=== PATIENT | female | born 1930 | race African-American/Black ===

== ENCOUNTER 2018-10-07 22:14 | Inpatient (IN) | payer MEDICAID, MEDICARE ==
[~2018-10-07] VITALS: Ht 157.5 cm; Wt 61.7 kg
[2018-10-07 22:19] VITALS: BP_SYST 108
[2018-10-07] MEDS ORDERED: CILO100T PO (22:37)
[2018-10-07] MEDS ORDERED: SENN-234 PO (22:37)
[2018-10-07] MEDS ORDERED: FAMO-132 PO (22:37)
[2018-10-07] MEDS ORDERED: ANT30 PO (22:37)
[2018-10-07] MEDS ORDERED: MOM PO (22:37)
[2018-10-07] MEDS ORDERED: MULT-1089 PO (22:37)
[2018-10-07] MEDS ORDERED: TYC3 PO (22:37)
[2018-10-07] MEDS ORDERED: HYDR-4272 PO ×2 (22:37)
[2018-10-07] MEDS ORDERED: ASCO500T20 PO (22:37)
[2018-10-07] MEDS ORDERED: ACET325T53 PO (22:37)
[2018-10-07] MEDS ORDERED: DOCU-144 PO (22:37)
[2018-10-07] MEDS ORDERED: ASA81 PO (22:37)
[2018-10-07] MEDS ORDERED: NACL 0.9% 1,000 ML IV ONE (22:47)
[2018-10-08 00:31] LABS: BASOPHILS # (AUTO) 0.1 K/uL (0.0-0.2); BASOPHILS % (AUTO) 0.5 % (0.0-2.0); EOSINOPHILS % (AUTO) 0.1 % (0.0-4.0); HEMATOCRIT 36.6 % (36-48); HEMOGLOBIN 12.3 g/dL (12.0-16.0); LYMPHOCYTES # (AUTO) 1.1 K/uL (1.0-5.5); MEAN CORPUSCULAR HEMOGLOBIN 32 pg (27-31); MEAN CORPUSCULAR HGB CONC 34 % (32-36); MEAN CORPUSCULAR VOLUME 94 fL (79.0-98.0); MONOCYTES # (AUTO) 0.6 K/uL (0.0-1.0); MONOCYTES % (AUTO) 5.9 % (1.7-9.3); NEUTROPHILS % (AUTO) 82.5 % (40.0-70.0); PLATELET COUNT (AUTO) 350 K/uL (130-430); RED CELL DISTRIBUTION WIDTH 15.1 % (9.0-15.0); WHITE BLOOD COUNT (AUTO) 9.8 K/uL (4.8-10.8)
[2018-10-08 00:36] LABS: ANION GAP 10 (5-15); CALCIUM 9.7 mg/dL (8.4-11.0); CHLORIDE 102 mmol/L (98-107); CREATININE 0.97 mg/dL (0.55-1.30); GLUCOSE 173 mg/dL (70-99); POTASSIUM 4.3 mmol/L (3.5-5.1); SODIUM SERUM 137 mmol/L (136-145); UREA NITROGEN, BLOOD 17 mg/dL (8-21)
[2018-10-08 00:39] LABS: PROTHROMBIN TIME 10.3 SECS (9.5-12.5)
[2018-10-08 00:42] LABS: ALANINE AMINOTRANSFERASE 33 U/L (12-78); ALBUMIN 2.7 g/dL (3.4-4.8); AMYLASE 135 U/L (0-100); ASPARTATE AMINOTRANSFERASE 29 U/L (10-37); LIPASE 87 U/L (73-393); TOTAL BILIRUBIN 0.5 mg/dL (0.0-1.0)
[2018-10-08] MEDS ORDERED: PIPERACILLIN/TAZO 3.375 GM in NS 50 ML IV ONE (01:00)
[2018-10-08] MEDS ORDERED: NACL 0.9% 1,000 ML IV ONE (01:00)
[2018-10-08] MEDS ORDERED: PIPERACILLIN/TAZOBACTAM 3.375 GM/VIAL (ZOSYN) IV ONE (01:06)
[2018-10-08 01:08] LABS: BILIRUBIN,URINE NEGATIVE (NEGATIVE); BLOOD, URINE 3+ (NEGATIVE); CLARITY/URINE HAZY (CLEAR); COLOR,URINE YELLOW (YELLOW); GLUCOSE,URINE NEGATIVE (NEGATIVE); KETONES,URINE NEGATIVE (NEGATIVE); LEUKOCYTE ESTERASE ,URINE 1+ (NEGATIVE); NITRITE, URINE NEGATIVE (NEGATIVE); PROTEIN URINE 3+ (NEGATIVE); UROBILINOGEN,URINE 0.2 (0.2-1.0)
[2018-10-08 01:19] LABS: BACTERIA,URINE MANY /HPF (None Seen); RBC,URINE 20-50 /HPF (0-3)
[2018-10-08] MEDS ORDERED: KCL 20 mEq in D5/0.45NS 1000mL 1,000 ML IV SCH (04:15)
[2018-10-08] MEDS ORDERED: ACETAMINOPHEN 325 MG TABLET PO PRN ×2 (04:15→04:30)
[2018-10-08] MEDS ORDERED: ONDANSETRON HCL 4 MG/2 ML VIAL IVP PRN (04:15)
[2018-10-08] MEDS ORDERED: HYDROcodone/ACETAMIN 5-325 MG TAB (NORCO/ VICODIN) PO PRN (04:30)
[2018-10-08] MEDS ORDERED: ACETAMINOPHEN/CODEINE 300 MG-30 MG TABLET PO PRN (04:30)
[2018-10-08] MEDS ORDERED: MAG-AL HYDROX/SIMETH 30 ML UDC PO PRN (04:30)
[2018-10-08 05:22] VITALS: BP_SYST 137
[2018-10-08] MEDS ORDERED: KCL 20 mEq in D5/0.45NS 1000mL 1,000 ML IV ONE (06:04)
[2018-10-08 08:10] VITALS: BP_SYST 96
[2018-10-08] MEDS: DOCUSATE SODIUM 100 MG CAPSULE PO SCH ×2 (08:16→21:47)
[2018-10-08] MEDS: ASPIRIN 81 MG TAB.CHEW PO SCH (08:17)
[2018-10-08] MEDS: FAMOTIDINE 20 MG TABLET PO SCH (08:17)
[2018-10-08] MEDS: ASCORBIC ACID 500 MG TABLET PO SCH ×2 (08:17→21:47)
[2018-10-08] MEDS: MULTIVITAMINS TAB 1 TABLET PO SCH (08:17)
[2018-10-08] MEDS: HYDROcodone/ACETAMIN 5-325 MG TAB (NORCO/ VICODIN) PO SCH (08:17)
[2018-10-08] MEDS: CILOSTAZOL 50 MG TABLET (PLETAL) PO SCH ×2 (08:18→21:47)
[2018-10-08] MEDS: CEFEPIME 1 GM in D5W 50 ML IV SCH ×2 (09:19→23:07)
[2018-10-08 12:32] VITALS: BP_SYST 115
[2018-10-08 16:24] VITALS: BP_SYST 115
[2018-10-08 20:00] VITALS: BP_SYST 109
[2018-10-08] MEDS: KCL 20 mEq in D5/0.45NS 1000mL 1,000 ML IV SCH (21:46)
[2018-10-08] MEDS: SENNOSIDES/DOCUSATE SODIUM 1 TAB TABLET(SENOKOT-S) PO SCH (21:47)
[2018-10-08] MEDS: MILK OF MAGNESIA 30 ML UDC PO SCH (21:47)
[2018-10-08] MEDS: ENOXAPARIN SODIUM 40 MG/0.4 ML SYRINGE SUBCUT SCH (21:53)
[2018-10-08] MEDS ORDERED: CEFEPIME 1 GM/VIAL (MAXIPIME) ONE (23:02)
[2018-10-09 01:30] VITALS: BP_SYST 110
[2018-10-09 07:57] VITALS: BP_SYST 138
[2018-10-09] MEDS: FAMOTIDINE 20 MG TABLET PO SCH (09:05)
[2018-10-09] MEDS: CILOSTAZOL 50 MG TABLET (PLETAL) PO SCH ×2 (09:06→20:20)
[2018-10-09] MEDS: HYDROcodone/ACETAMIN 5-325 MG TAB (NORCO/ VICODIN) PO SCH (09:06)
[2018-10-09] MEDS: DOCUSATE SODIUM 100 MG CAPSULE PO SCH ×2 (09:06→20:20)
[2018-10-09] MEDS: ASCORBIC ACID 500 MG TABLET PO SCH ×2 (09:07→20:20)
[2018-10-09] MEDS: MULTIVITAMINS TAB 1 TABLET PO SCH (09:07)
[2018-10-09] MEDS: ASPIRIN 81 MG TAB.CHEW PO SCH (09:07)
[2018-10-09] MEDS ORDERED: CEFEPIME 1 GM in D5W 50 ML IV ONE (10:30)
[2018-10-09] MEDS: KCL 20 mEq in D5/0.45NS 1000mL 1,000 ML IV SCH (10:49)
[2018-10-09 12:41] VITALS: BP_SYST 116
[2018-10-09 17:04] VITALS: BP_SYST 114
[2018-10-09 20:00] VITALS: BP_SYST 133
[2018-10-09] MEDS: CEFEPIME 1 GM in D5W 50 ML IV SCH (20:19)
[2018-10-09] MEDS: SENNOSIDES/DOCUSATE SODIUM 1 TAB TABLET(SENOKOT-S) PO SCH (20:20)
[2018-10-09] MEDS: MILK OF MAGNESIA 30 ML UDC PO SCH (20:20)
[2018-10-09] MEDS: ENOXAPARIN SODIUM 40 MG/0.4 ML SYRINGE SUBCUT SCH (20:21)
[2018-10-10] MEDS: KCL 20 mEq in D5/0.45NS 1000mL 1,000 ML IV SCH ×2 (01:15→15:13)
[2018-10-10 01:47] VITALS: BP_SYST 127
[2018-10-10 08:09] VITALS: BP_SYST 145
[2018-10-10] MEDS: ASCORBIC ACID 500 MG TABLET PO SCH ×2 (08:45→20:10)
[2018-10-10] MEDS: DOCUSATE SODIUM 100 MG CAPSULE PO SCH ×2 (08:45→20:10)
[2018-10-10] MEDS: FAMOTIDINE 20 MG TABLET PO SCH (08:45)
[2018-10-10] MEDS: ASPIRIN 81 MG TAB.CHEW PO SCH (08:45)
[2018-10-10] MEDS: MULTIVITAMINS TAB 1 TABLET PO SCH (08:45)
[2018-10-10] MEDS: CEFEPIME 1 GM in D5W 50 ML IV SCH ×2 (08:45→20:10)
[2018-10-10] MEDS: CILOSTAZOL 50 MG TABLET (PLETAL) PO SCH ×2 (08:45→20:10)
[2018-10-10] MEDS: HYDROcodone/ACETAMIN 5-325 MG TAB (NORCO/ VICODIN) PO SCH (08:46)
[2018-10-10 12:33] VITALS: BP_SYST 136
[2018-10-10 16:25] VITALS: BP_SYST 135
[2018-10-10 19:14] VITALS: BP_SYST 139
[2018-10-10] MEDS: SENNOSIDES/DOCUSATE SODIUM 1 TAB TABLET(SENOKOT-S) PO SCH (20:10)
[2018-10-10] MEDS: MILK OF MAGNESIA 30 ML UDC PO SCH (20:10)
[2018-10-10] MEDS: ENOXAPARIN SODIUM 40 MG/0.4 ML SYRINGE SUBCUT SCH (20:13)
[2018-10-11 00:37] VITALS: BP_SYST 139
[2018-10-11] MEDS: KCL 20 mEq in D5/0.45NS 1000mL 1,000 ML IV SCH ×2 (06:23→16:36)
[2018-10-11 07:37] LABS: ANION GAP 6 (5-15); CALCIUM 9.4 mg/dL (8.4-11.0); CHLORIDE 103 mmol/L (98-107); CREATININE 0.74 mg/dL (0.55-1.30); GLUCOSE 148 mg/dL (70-99); POTASSIUM 4.9 mmol/L (3.5-5.1); SODIUM SERUM 135 mmol/L (136-145); UREA NITROGEN, BLOOD 15 mg/dL (8-21)
[2018-10-11 07:54] LABS: EOSINOPHILS # (AUTO) 0.3 K/uL (0.0-0.4); EOSINOPHILS % (AUTO) 6.8 % (0.0-4.0); HEMATOCRIT 28.3 % (36-48); HEMOGLOBIN 9.4 g/dL (12.0-16.0); LYMPHOCYTES # (AUTO) 1.5 K/uL (1.0-5.5); LYMPHOCYTES % (AUTO) 31.7 % (20.5-51.5); MEAN CORPUSCULAR HEMOGLOBIN 31 pg (27-31); MEAN CORPUSCULAR HGB CONC 33 % (32-36); MEAN CORPUSCULAR VOLUME 95 fL (79.0-98.0); MONOCYTES # (AUTO) 0.6 K/uL (0.0-1.0); NEUTROPHILS # (AUTO) 2.3 K/uL (1.8-7.7); NEUTROPHILS % (AUTO) 48.5 % (40.0-70.0); PLATELET COUNT (AUTO) 286 K/uL (130-430); RED BLOOD CELL COUNT(AUTO) 2.98 MIL/uL (4.2-6.2); RED CELL DISTRIBUTION WIDTH 15.4 % (9.0-15.0); WHITE BLOOD COUNT (AUTO) 4.8 K/uL (4.8-10.8)
[2018-10-11 08:30] VITALS: BP_SYST 145
[2018-10-11] MEDS: CEFEPIME 1 GM in D5W 50 ML IV SCH ×2 (09:08→20:30)
[2018-10-11] MEDS: FAMOTIDINE 20 MG TABLET PO SCH (09:10)
[2018-10-11] MEDS: MULTIVITAMINS TAB 1 TABLET PO SCH (09:10)
[2018-10-11] MEDS: ASPIRIN 81 MG TAB.CHEW PO SCH (09:10)
[2018-10-11] MEDS: ASCORBIC ACID 500 MG TABLET PO SCH ×2 (09:11→20:32)
[2018-10-11] MEDS: CILOSTAZOL 50 MG TABLET (PLETAL) PO SCH ×2 (09:11→20:41)
[2018-10-11] MEDS: DOCUSATE SODIUM 100 MG CAPSULE PO SCH ×2 (09:11→20:32)
[2018-10-11] MEDS: HYDROcodone/ACETAMIN 5-325 MG TAB (NORCO/ VICODIN) PO SCH (09:11)
[2018-10-11 11:21] VITALS: BP_SYST 134
[2018-10-11 15:26] VITALS: BP_SYST 120
[2018-10-11 19:49] VITALS: BP_SYST 144
[2018-10-11] MEDS: ENOXAPARIN SODIUM 40 MG/0.4 ML SYRINGE SUBCUT SCH (20:23)
[2018-10-11] MEDS: MILK OF MAGNESIA 30 ML UDC PO SCH (20:31)
[2018-10-11] MEDS: SENNOSIDES/DOCUSATE SODIUM 1 TAB TABLET(SENOKOT-S) PO SCH (20:32)
[2018-10-12 01:28] VITALS: BP_SYST 114
[2018-10-12] MEDS: KCL 20 mEq in D5/0.45NS 1000mL 1,000 ML IV SCH (05:43)
[2018-10-12] MEDS: FAMOTIDINE 20 MG TABLET PO SCH (09:14)
[2018-10-12] MEDS: ASCORBIC ACID 500 MG TABLET PO SCH (09:14)
[2018-10-12] MEDS: CILOSTAZOL 50 MG TABLET (PLETAL) PO SCH (09:14)
[2018-10-12] MEDS: ASPIRIN 81 MG TAB.CHEW PO SCH (09:14)
[2018-10-12] MEDS: DOCUSATE SODIUM 100 MG CAPSULE PO SCH (09:15)
[2018-10-12] MEDS: MULTIVITAMINS TAB 1 TABLET PO SCH (09:15)
[2018-10-12] MEDS: HYDROcodone/ACETAMIN 5-325 MG TAB (NORCO/ VICODIN) PO SCH (09:17)
[2018-10-12] MEDS: CEFEPIME 1 GM in D5W 50 ML IV SCH (09:37)
[2018-10-12 09:52] VITALS: BP_SYST 126
[2018-10-12 11:28] VITALS: BP_SYST 147
[2018-10-12] MEDS ORDERED: MAXPM1 IV (15:16)
[2018-10-12 15:58] VITALS: BP_SYST 128
[2018-10-12 17:55] VITALS: BP_SYST 128
== END 2018-10-12 19:25 | DRG 720 ==
LOC: SED 22:14 → STU 10-08 04:13 → SMU 10-09 19:17
PROVIDERS: ADMIT Family Medicine; ATTEND Family Medicine
DX: A41.9 Sepsis, unspecified organism (principal); E43 Unspecified severe protein-calorie malnutrition; G93.41 Metabolic encephalopathy; B96.20 Unspecified Escherichia coli [E. coli] as the cause of diseases classified elsewhere; N39.0 Urinary tract infection, site not specified; M19.90 Unspecified osteoarthritis, unspecified site; D64.9 Anemia, unspecified; F03.90 Unspecified dementia, unspecified severity, without behavioral disturbance, psychotic disturbance, mood disturbance, and anxiety; Z68.24 Body mass index [BMI] 24.0-24.9, adult; Z79.82 Long term (current) use of aspirin
CPT/HCPCS: 36415; 70450-TC; 74018; 80048; 80053; 81000-TC; 82150-TC; 83605; 83690-TC; 85025; 85610-TC; 87040-TC; 87081; 87086; 87186-TC; 99285; G0378; J0692; J1650; J2543; J7060